=== PATIENT | male | born 1980 | race Two or more races ===

== ENCOUNTER 2022-02-17 00:39 | Emergency (ER) | payer OTHER ==
[~2022-02-17] VITALS: Ht 180.3 cm; Wt 99.8 kg
[2022-02-17] MEDS ORDERED: TAMS0.4C PO (06:38)
[2022-02-17] MEDS ORDERED: BACTRIM DS TAB1 EACH PO (06:38)
[2022-02-17] MEDS ORDERED: KETO10TA2 PO (06:38)
== END 2022-02-17 07:11 | disposition home or self-care (01) ==
LOC: ER 00:39
DX: N39.0 Urinary tract infection, site not specified (principal); N20.1 Calculus of ureter; R10.9 Unspecified abdominal pain